=== PATIENT | female | born 1955 | race Asian ===

== ENCOUNTER 2021-02-28 07:35 | Day surgery (SDC) | payer OTHER ==
[~2021-02-28] VITALS: Ht 152.4 cm; Wt 54.9 kg
[2021-02-28] MEDS ORDERED: MIDAZOLAM 5 MG/5 ML VIAL ONE (09:46)
[2021-02-28] MEDS: MIDAZOLAM 2 MG/2 ML VIAL IVP ONE (10:07)
== END 2021-02-28 10:55 | disposition home or self-care (01) ==
LOC: MDS 07:35 → MMU 07:36 → MDS 10:55
PROVIDERS: ATTEND Internal Medicine Gastroenterology
DX: R10.13 Epigastric pain (principal); K29.70 Gastritis, unspecified, without bleeding; I10 Essential (primary) hypertension; E78.5 Hyperlipidemia, unspecified
CPT/HCPCS: 36415; 43239; 86677; J2250